=== PATIENT | male | born 1930 | race Caucasian/White ===

== ENCOUNTER 2017-05-19 09:53 | Emergency (ER) | payer MEDICARE, BC ==
[2017-05-19] MEDS ORDERED: Aspirin 81 MG Tab.Chew ONE (09:57)
--- NOTE | 2017-05-19 10:04 | EDM.PDOC ---
ED HPI GENERAL MEDICAL PROBLEM - General Stated Complaint: CHEST PAIN CAME FROM ACLR Time Seen by Provider: 05/19/17 09:55 Source of Information: Reports: Patient, Old Records, RN, RN Notes Reviewed History Limitations: Reports: No Limitations - History of Present Illness INITIAL COMMENTS - FREE TEXT/NARRATIVE: Adi is a 86 yo Male who presents today due to a week long history of burning pain to his mid chest. He reports that his pain has progressively gotten worse since that time. He denies radiation. Reports that the pain comes and goes in waves. He does get short of breath with the pain and nausea with the pain. He does have a history significant for stent placement x2. He stopped taking his Plavix approximately a week after his stent placement. He took 3 nitroglycerin at home with significant relief in his pain. He went to the clinic today to have his pain evaluated and was sent to the ED for further evaluation. Clinic nurse reported that his trop was elevated over 4. Onset: Gradual (For the last week ) Duration: Day(s): Location: Reports: Chest Quality: Reports: Other (burning pain to his chest ) Severity: Moderate Improves with: Reports: Rest Worsens with: Reports: Eating, Movement Associated Symptoms: Reports: Chest Pain, Nausea/Vomiting, Shortness of Breath Epigastric Pain Score (Numeric/FACES): 1 - Related Data Allergies Allergy/AdvReac Type Severity Reaction Status Date / Time No Known Allergies Allergy Verified 09/05/14 10:20 Home Meds: Home Meds Non-Formulary Medication [NF Drug] 1 each PO BID 07/06/15 [History] Non-Formulary Medication [NF Drug] 1 each PO BID 07/06/15 [History] Non-Formulary Medication [NF Drug] 1 each PO DAILY 07/06/15 [History] Non-Formulary Medication [NF Drug] 2 each PO BID 07/06/15 [History] Ciprofloxacin HCl [Cipro] 500 mg PO BID #14 tablet 07/08/15 [Rx] metroNIDAZOLE [Flagyl] 500 mg PO BID #14 tablet 07/08/15 [Rx] Past Medical History HEENT History: Reports: Cataract, Impaired Vision, Other (See Below) Other HEENT History: has hearing aides, glasses worn for reading Cardiovascular History: Reports: CAD, High Cholesterol, Hypertension, [place], Stents Gastrointestinal History: Reports: Other (See Below) Other Gastrointestinal History: diverticulitis Genitourinary History: Reports: Prostate Disorder Musculoskeletal History: Reports: Back Pain, Chronic, Fracture, Neck Pain, Chronic, Other (See Below) Other Musculoskeletal History: hx broken nose - Infectious Disease History Infectious Disease History: Reports: Chicken Pox, Shingles - Past Surgical History HEENT Surgical History: Reports: Cataract Surgery Cardiovascular Surgical History: Reports: Other (See Below) Social & Family History - Family History Family Medical History: Noncontributory - Tobacco Use Smoking Status *Q: Former Smoker Used Tobacco, but Quit: Yes Month/Year Tobacco Last Used: 07/1964 Second Hand Smoke Exposure: No - Alcohol Use Days Per Week of Alcohol Use: 7 Number of Drinks Per Day: 1 Total Drinks Per Week: 7 - Recreational Drug Use Recreational Drug Use: No ED ROS GENERAL - Review of Systems Review Of Systems: ROS reveals no pertinent complaints other than HPI. ED EXAM, GENERAL - Physical Exam Exam: See Below Exam Limited By: No Limitations General Appearance: Alert, WD/WN, No Apparent Distress Eye Exam: Bilateral Eye: PERRL Ears: Normal External Exam, Normal Canal, Hearing Grossly Normal, Normal TMs Ear Exam: Bilateral Ear: Auricle Normal, Canal Normal, TM normal Nose: Normal Inspection, Normal Mucosa, No Blood Throat/Mouth: Normal Inspection, Normal Lips, Normal Teeth, Normal Gums, Normal Oropharynx, Normal Voice, No Airway Compromise Head: Atraumatic, Normocephalic Neck: Normal Inspection, Supple, Non-Tender, Full Range of Motion Respiratory/Chest: No Respiratory Distress, Lungs Clear, Normal Breath Sounds, No Accessory Muscle Use, Other (Lower mid chest pain. ) Cardiovascular: Normal Peripheral Pulses, Regular Rate, Rhythm, No Edema, No Gallop, No JVD, No Murmur, No Rub GI/Abdominal: Normal Bowel Sounds, Soft, Non-Tender, No Organomegaly, No Distention, No Abnormal Bruit, No Mass (Male) Exam: Deferred Rectal (Males) Exam: Deferred Back Exam: Normal Inspection, Full Range of Motion, NT Extremities: Normal Inspection, Normal Range of Motion, Non-Tender, Normal Capillary Refill, No Pedal Edema Neurological: Alert, Oriented, CN II-XII Intact, Normal Cognition, Normal Gait, Normal Reflexes, No Motor/Sensory Deficits Psychiatric: Normal Affect, Normal Mood Skin Exam: Warm, Dry, Intact, Normal Color, No Rash Lymphatic: No Adenopathy EKG INTERPRETATION EKG Date: 05/19/17 Time: 09:55 Rhythm: NSR [place]: LAD-Left [place] Deviation P-Wave: Present QRS: Normal ST-T: Normal QT: Normal Comparison: No Change Course - Vital Signs Last Recorded V/S: Last Vital Signs Temp 97.8 F 05/19/17 09:42 Pulse 74 05/19/17 09:42 Resp 14 05/19/17 09:42 BP 149/95 H 05/19/17 09:42 Pulse Ox 98 05/19/17 09:42 - Orders/Labs/Meds Orders: Active Orders 24 hr Category Date Time Status EKG Documentation Completion [RC] URGENT Care 05/19/17 09:41 Active Aspirin Med 05/20/17 08:00 Active 162 mg PO WITHBREAKFAST Medication Orders Aspirin (Aspirin) 162 mg PO WITHBREAKFAST AGUSTIN Last Admin: 05/19/17 09:58 Dose: 162 mg Labs: Laboratory Tests 05/19/17 05/19/17 Range/Units 10:02 10:02 WBC 8.6 (5.0-10.0) 10^3/uL RBC 4.64 (4.6-6.2) 10^6/uL Hgb 15.2 (14.0-18.0) g/dL Hct 45.8 (40.0-54.0) % MCV 98.7 (80-100) fL MCH 32.8 (27.0-34.0) pg MCHC 33.2 (33.0-35.0) g/dL Plt Count 193 (150-450) 10^3/uL Neut % (Auto) 64.5 (42.2-75.2) % Lymph % (Auto) 23.5 (20.5-50.1) % [place] % (Auto) 10.4 H (2-8) % Eos % (Auto) 1.5 (1.0-3.0) % Baso % (Auto) 0.1 (0.0-1.0) % Sodium 142 (135-145) mmol/L Potassium 3.7 (3.6-5.0) mmol/L Chloride 100 L (101-111) mmol/L Carbon Dioxide 32.0 H (21.0-31.0) mmol/L Anion Gap 13.7 BUN 15 (7-18) mg/dL Creatinine 0.9 (0.6-1.3) mg/dL Est Cr Clr Drug Dosing TNP Estimated GFR (MDRD) > 60 BUN/Creatinine Ratio 16.66 Glucose 113 H (74-105) mg/dL Calcium 9.6 (8.4-10.2) mg/dl Total Bilirubin 1.7 H (0.2-1.0) mg/dL AST 50 H (10-42) IU/L ALT 21 (10-60) IU/L Alkaline Phosphatase 60 (42-121) IU/L Troponin I 3.08 H* (0.00-0.02) ng/ml Total Protein 7.4 (6.7-8.2) g/dl Albumin 4.1 (3.2-5.5) g/dl Globulin 3.3 Albumin/Globulin Ratio 1.24 Meds: Medications Generic Name Dose Route Start Last Admin Trade Name Freq PRN Reason Stop Dose Admin Aspirin 162 mg 05/20/17 08:00 05/19/17 09:58 Aspirin PO 162 mg WITHBREAKFAST AGUSTIN Administration Discontinued Medications Generic Name Dose Route Start Last Admin Trade Name Freq PRN Reason Stop Dose Admin Aspirin Confirm 05/19/17 09:57 05/19/17 10:16 Aspirin Administered 05/19/17 09:58 Not Given Dose 162 mg .ROUTE .STK-MED ONE Departure - Departure Time of Disposition: 10:46 Disposition: DC/Tfer to Acute Hospital 02 Reason for Transfer *Q: Other Condition: Good Clinical Impression: NSTEMI (non-ST elevated myocardial infarction) Forms: Interfacility Transfer EMTALA Care Plan Goals: Case discussed with Dr Irizarry at this time. He has agreed to accept the patient as a direct admit to the ED.
[2017-05-19 10:29] LABS: CHLORIDE,CL 100 mmol/L (101-111); SODIUM,NA 142 mmol/L (135-145)
[2017-05-19 10:39] VITALS: BP 149/95
[2017-05-19] MEDS ORDERED: Heparin Sodium/D5W 25,000 UNITS/500 ML BAG IV SCH (10:45)
[2017-05-19] MEDS ORDERED: Heparin Sodium 5,000 Units/ML Vial IVPUSH ONE (10:45)
[2017-05-20] MEDS ORDERED: Aspirin 81 MG Tab.Chew PO SCH (08:00)
== END 2017-05-19 11:35 ==
LOC: DL.ED 09:53
DX: I21.4 Non-ST elevation (NSTEMI) myocardial infarction (principal); I10 Essential (primary) hypertension; I25.2 Old myocardial infarction; Z79.899 Other long term (current) drug therapy; Z87.891 Personal history of nicotine dependence
CPT/HCPCS: 36415; 80053; 84484; 85025; 93005; 93010; 96365; 96375; 99285; A9270; J1644

== ENCOUNTER 2018-06-21 14:23 | Emergency (ER) | payer MEDICARE, BC ==
[2018-06-21 15:37] VITALS: BP 153/92
[2018-06-21 15:51] LABS: ANION GAP 14.9; CHLORIDE,CL 103 mmol/L (101-111); SODIUM,NA 141 mmol/L (135-145)
--- NOTE | 2018-06-21 15:56 | EDM.PDOC ---
ED HPI GENERAL MEDICAL PROBLEM - General Chief Complaint: ENT Problem Stated Complaint: NOSE KEEPS BLEEDING [phone] Time Seen by Provider: 06/21/18 14:40 Source of Information: Reports: Patient, RN, RN Notes Reviewed History Limitations: Reports: No Limitations - History of Present Illness INITIAL COMMENTS - FREE TEXT/NARRATIVE: Pt to ER with c/o nosebleed. Patient states about noon today he bent over and had a bloody nose. He states he held his nose for a while and it eventually stopped. He states he had an appointment with Dr. Ryan at the clinic, but the clinic called him and told him he should go to the ER. Patient has not had a bloody nose since about 1pm. No active bleeding upon arrival. Denies frequent bloody noses, denies being on blood thinners. He denies headaches. He states he has had an GA and has had stents but does not take anticoagulants. Denies any other complaints. Onset: Today, Sudden Duration: Resolved Prior to Arrival - Related Data Allergies Allergy/AdvReac Type Severity Reaction Status Date / Time No Known Allergies Allergy Verified 09/05/14 10:20 Home Meds: Home Meds Non-Formulary Medication [NF Drug] 1 each PO BID 07/06/15 [History] Non-Formulary Medication [NF Drug] 1 each PO BID 07/06/15 [History] Non-Formulary Medication [NF Drug] 1 each PO DAILY 07/06/15 [History] Non-Formulary Medication [NF Drug] 2 each PO BID 07/06/15 [History] Ascorbic Acid 500 mg PO DAILY 06/02/17 [History] Rodríguez Flavor [Rodríguez Concentrate] 100 ml PO DAILY 06/02/17 [History] Clopidogrel Bisulfate [Clopidogrel] 75 mg PO DAILY 06/02/17 [History] Docusate Sodium 100 mg PO BID 06/02/17 [History] Nitroglycerin 0.4 mg SL ASDIRECTED 06/02/17 [History] atorvaSTATin [Lipitor] 40 mg PO DAILY 06/02/17 [History] Past Medical History HEENT History: Reports: Cataract, Impaired Vision, Other (See Below) Other HEENT History: has hearing aides, glasses worn for reading Cardiovascular History: Reports: CAD, High Cholesterol, Hypertension, [place], Stents Gastrointestinal History: Reports: Other (See Below) Other Gastrointestinal History: diverticulitis Genitourinary History: Reports: Prostate Disorder Musculoskeletal History: Reports: Back Pain, Chronic, Fracture, Neck Pain, Chronic, Other (See Below) Other Musculoskeletal History: hx broken nose - Infectious Disease History Infectious Disease History: Reports: Chicken Pox, Shingles - Past Surgical History HEENT Surgical History: Reports: Cataract Surgery Cardiovascular Surgical History: Reports: Coronary Artery Stent Dermatological Surgical History: Reports: None Social & Family History - Family History Family Medical History: Noncontributory - Tobacco Use Smoking Status *Q: Never Smoker - Caffeine Use Caffeine Use: Reports: Coffee - Alcohol Use Days Per Week of Alcohol Use: 1 Number of Drinks Per Day: 1 Total Drinks Per Week: 1 - Recreational Drug Use Recreational Drug Use: No ED ROS ENT - Review of Systems Review Of Systems: ROS reveals no pertinent complaints other than HPI. ED EXAM, ENT - Physical Exam Exam: See Below Exam Limited By: No Limitations General Appearance: Alert, WD/WN, No Apparent Distress Eye Exam: Bilateral Eye: EOMI, Normal Inspection Ears: Normal External Exam, Hearing Grossly Normal Nose: Normal Inspection, Dried Blood Mouth/Throat: Normal Inspection, Normal Gums, Normal Lips, Normal Oropharynx, Normal Teeth Head: Atraumatic, Normocephalic Neck: Normal Inspection, Supple, Non-Tender, Full Range of Motion Respiratory/Chest: No Respiratory Distress, Normal Breath Sounds, No Accessory Muscle Use, Chest Non-Tender, Decreased Breath Sounds Cardiovascular: Normal Peripheral Pulses, Regular Rate, Rhythm, No Edema, No Gallop, No JVD, No Murmur, No Rub GI/Abdominal: Normal Bowel Sounds, Soft, Non-Tender (Male) Exam: Deferred Rectal (Males) Exam: Deferred Back: Normal Inspection, Full Range of Motion Extremities: Normal Inspection, Normal Range of Motion, Non-Tender, No Pedal Edema, Normal Capillary Refill Neurological: Alert, Oriented, CN II-XII Intact, Normal Cognition, Normal Gait, Normal Reflexes, No Motor/Sensory Deficits Psychiatric: Normal Affect, Normal Mood Skin: Warm, Dry, Intact, Normal Color, No Rash Lymphatic: No Adenopathy Course - Vital Signs Last Recorded V/S: Last Vital Signs Temp 98.9 F 06/21/18 14:30 Pulse 84 06/21/18 14:30 Resp 18 06/21/18 14:30 BP 153/92 H 06/21/18 14:30 Pulse Ox 99 06/21/18 14:30 - Orders/Labs/Meds Labs: Laboratory Tests 06/21/18 06/21/18 06/21/18 Range/Units 15:25 15:25 15:25 WBC 8.3 (5.0-10.0) 10^3/uL RBC 4.87 (4.6-6.2) 10^6/uL Hgb 15.8 (14.0-18.0) g/dL Hct 46.6 (40.0-54.0) % MCV 95.7 D (80-100) fL MCH 32.4 (27.0-34.0) pg MCHC 33.9 (33.0-35.0) g/dL Plt Count 186 (150-450) 10^3/uL Neut % (Auto) 64.6 (42.2-75.2) % Lymph % (Auto) 21.3 (20.5-50.1) % [place] % (Auto) 12.0 H (2-8) % Eos % (Auto) 1.9 (1.0-3.0) % Baso % (Auto) 0.2 (0.0-1.0) % PT 9.3 (9.0-12.0) SEC INR 0.9 (0.9-1.2) Sodium 141 (135-145) mmol/L Potassium 3.9 (3.6-5.0) mmol/L Chloride 103 (101-111) mmol/L Carbon Dioxide 27.0 (21.0-31.0) mmol/L Anion Gap 14.9 BUN 19 H (7-18) mg/dL Creatinine 1.1 (0.6-1.3) mg/dL Est Cr Clr Drug Dosing 44.23 mL/min Estimated GFR (MDRD) > 60 BUN/Creatinine Ratio 17.27 Glucose 101 (74-105) mg/dL Calcium 9.3 (8.4-10.2) mg/dl Total Bilirubin 1.8 H (0.2-1.0) mg/dL AST 18 (10-42) IU/L ALT 12 (10-60) IU/L Alkaline Phosphatase 80 (42-121) IU/L Total Protein 6.6 L (6.7-8.2) g/dl Albumin 3.8 (3.2-5.5) g/dl Globulin 2.8 Albumin/Globulin Ratio 1.36 Departure - Departure Time of Disposition: 15:54 Disposition: Home, Self-Care 01 Condition: Fair Clinical Impression: Epistaxis - Discharge Information *PRESCRIPTION DRUG MONITORING PROGRAM REVIEWED*: No *COPY OF PRESCRIPTION DRUG MONITORING REPORT IN PATIENT KERRY: No Instructions: Nosebleed, [id number] Forms: ED Department Discharge Additional Instructions: May use Afrin nasal spray, over the counter. May use vaseline or saline gel on a clean qtip in the nostrils to keep moistened. Follow up with your primary care facility
== END 2018-06-21 16:00 | disposition home or self-care (01) ==
LOC: DL.ED 14:23
DX: R04.0 Epistaxis (principal); I25.10 Atherosclerotic heart disease of native coronary artery without angina pectoris; E78.00 Pure hypercholesterolemia, unspecified; I10 Essential (primary) hypertension; I25.2 Old myocardial infarction; Z95.5 Presence of coronary angioplasty implant and graft; Z79.01 Long term (current) use of anticoagulants; Z79.899 Other long term (current) drug therapy
CPT/HCPCS: 36415; 80053; 85025; 85610; 99283

== ENCOUNTER 2020-01-29 14:50 | Emergency (ER) | payer MEDICARE, BC ==
[2020-01-29 15:54] LABS: ANION GAP 10.9 mEq/L (7-13); CHLORIDE,CL 104 mmol/L (98-107); SODIUM,NA 140 mmol/L (136-145)
--- NOTE | 2020-01-29 15:57 | CT ---
EXAMINATION: Head wo Cont SEX: Male AGE: 89 years CLINICAL HISTORY: 89-year-old male injured in fall (hit head). No comparison CT head immediately available. Patient alert and oriented. Scan technique: Volume acquisition of data emergency unenhanced CT scan of the head and brain obtained with patient lying supine Siemens multislice CT scanner [place], [place]. All data archived in the PACS system for storage, reformatting axial/sagittal/coronal planes and study (bone/brain windows). INTERPRETATION: 1. Generalized age-appropriate cerebral cortical atrophy symmetric with underlying mirror-image normal ventricular system. 2. Scattered areas of decreased attenuation throughout the periventricular white matter consistent with microvascular infarcts. 3. No supratentorial or posterior fossa mass lesion. Cerebellum and brainstem unremarkable. 4. Uniformly thick bony calvarium without sign of skull fracture, scalp contusion or laceration. No foreign bodies. Symmetric clear pneumatization of the paranasal and mastoid sinuses. Normal TMJs. 5. No skull fracture, underlying brain contusion or extracerebral/intracranial epidural or subdural hematoma. 6. No sign of acute intracerebral, intraventricular or subarachnoid bleed (physiologic calcifications). CONCLUSION: No sign of skull fracture or closed head injury. No intracranial bleed.
--- NOTE | 2020-01-29 15:59 | CR ---
PROCEDURE INFORMATION: Exam: XR Chest, 1 View Exam date and time: 01/29/2020 3:43 PM Age: 89 years old Clinical indication: SOB TECHNIQUE: Imaging protocol: XR of the chest Views: 1 view. COMPARISON: No relevant prior studies available. FINDINGS: Lungs: Clear lungs. Pleural space: No pneumothorax. No sizable pleural effusion. Heart/Mediastinum: Cardiomegaly. Bones/joints: Unremarkable. IMPRESSION: Clear lungs.
--- NOTE | 2020-01-29 16:03 | EDM.PDOC ---
ED HPI GENERAL MEDICAL PROBLEM - General Source of Information: Reports: Patient, RN, RN Notes Reviewed History Limitations: Reports: Other (ELEM) - General Chief Complaint: Syncope Stated Complaint: PT KEEPS FALLING OVER, HIT HIS NOSE AND EYE AREA Time Seen by Provider: 01/29/20 15:15 - History of Present Illness INITIAL COMMENTS - FREE TEXT/NARRATIVE: pt arrives ambulatory to ER with c/o several falls. pt states he has fallen on Wednesday, Wednesday, and Wednesday upon standing up after bending over. states he has hit his head on at least 2 occasions. states he called the clinic today to see his PCP and was told to come to the ER for evaluation. denies pain, reports some SOB which he has been experiencing "for years." states he lives alone, still drives. A & O x 3. denies medicaiton use, states he doesnt take prescription medications. does use NTG SL PRN, used on Wednesday after a syncopal episode. previous use was a few weeks ago. hx of PR with stenting, otherwise denies health history. (Lauryn Chand) - Related Data Allergies Allergy/AdvReac Type Severity Reaction Status Date / Time No Known Allergies Allergy Verified 09/05/14 10:20 Home Meds: Home Meds Non-Formulary Medication [NF Drug] 1 each PO BID 07/06/15 [History] Non-Formulary Medication [NF Drug] 1 each PO BID 07/06/15 [History] Non-Formulary Medication [NF Drug] 1 each PO DAILY 07/06/15 [History] Non-Formulary Medication [NF Drug] 2 each PO BID 07/06/15 [History] Ascorbic Acid 500 mg PO DAILY 06/02/17 [History] Rodríguez Flavor [Rodríguez Concentrate] 100 ml PO DAILY 06/02/17 [History] Clopidogrel Bisulfate [Clopidogrel] 75 mg PO DAILY 06/02/17 [History] Docusate Sodium 100 mg PO BID 06/02/17 [History] Nitroglycerin 0.4 mg SL ASDIRECTED 06/02/17 [History] atorvaSTATin [Lipitor] 40 mg PO DAILY 06/02/17 [History] Past Medical History HEENT History: Reports: Cataract, Impaired Vision, Other (See Below) Other HEENT History: has hearing aides, glasses worn for reading Cardiovascular History: Reports: CAD, High Cholesterol, Hypertension, [place], Stents Gastrointestinal History: Reports: Other (See Below) Other Gastrointestinal History: diverticulitis Genitourinary History: Reports: Prostate Disorder Musculoskeletal History: Reports: Back Pain, Chronic, Fracture, Neck Pain, Chronic, Other (See Below) Other Musculoskeletal History: hx broken nose - Infectious Disease History Infectious Disease History: Reports: Chicken Pox, Shingles - Past Surgical History HEENT Surgical History: Reports: Cataract Surgery Cardiovascular Surgical History: Reports: Coronary Artery Stent Dermatological Surgical History: Reports: None Social & Family History - Family History Family Medical History: No Pertinent Family History - Caffeine Use Caffeine Use: Reports: Coffee ED ROS GENERAL - Review of Systems Review Of Systems: Comprehensive ROS is negative, except as noted in HPI. - Physical Exam Exam: See Below Exam Limited By: Other (ELEM) General Appearance: Alert, WD/WN, No Apparent Distress Eye Exam: Bilateral Eye: EOMI, Normal Inspection, PERRL Ears: Normal External Exam, Hearing Loss Nose: Normal Inspection, Normal Mucosa, No Blood Throat/Mouth: Normal Inspection, Normal Voice, No Airway Compromise Head Exam: Normocephalic, Facial Abrasions (right eyebrow and bridge of nose) Neck: Normal Inspection, Supple, Non-Tender, Full Range of Motion Respiratory/Chest: No Respiratory Distress, Lungs Clear, Normal Breath Sounds, Chest Non-Tender Cardiovascular: Normal Peripheral Pulses, Regular Rate, Rhythm, No Edema GI/Abdominal: Normal Bowel Sounds, Soft, Non-Tender (Male) Exam: Deferred Rectal (Males) Exam: Deferred Neuro Exam (Abbreviated): Alert, Oriented Back Exam: Normal Inspection, Full Range of Motion Extremities: Normal Inspection, Normal Range of Motion Psychiatric: Normal Affect, Normal Mood Skin Exam: Warm, Dry, Intact, Normal Color, No Rash Course - Vital Signs Last Recorded V/S: Last Vital Signs Temp 98.1 F 01/29/20 14:55 Pulse 78 01/29/20 14:55 Resp 16 01/29/20 14:55 BP 143/90 H 01/29/20 14:55 Pulse Ox 100 01/29/20 14:55 - Orders/Labs/Meds Orders: Active Orders 24 hr Category Date Time Status EKG 12 Lead [EKG Documentation Completion] [RC] STAT Care 01/29/20 15:06 Active UA W/MICROSCOPIC [URIN] Stat Lab 01/29/20 16:30 Results Labs: Laboratory Tests 01/29/20 01/29/20 01/29/20 Range/Units 15:27 15:27 16:30 WBC 7.1 (5.0-10.0) 10^3/uL RBC 4.56 L (4.6-6.2) 10^6/uL Hgb 15.4 (14.0-18.0) g/dL Hct 44.6 (40.0-54.0) % MCV 97.8 (80-100) fL MCH 33.8 (27.0-34.0) pg MCHC 34.5 (33.0-35.0) g/dL Plt Count 202 (150-450) 10^3/uL Neut % (Auto) 59.9 (42.2-75.2) % Lymph % (Auto) 25.5 (20.5-50.1) % [place] % (Auto) 12.0 H (2-8) % Eos % (Auto) 2.3 (1.0-3.0) % Baso % (Auto) 0.3 (0.0-1.0) % Sodium 140 (136-145) mmol/L Potassium 3.9 (3.5-5.1) mmol/L Chloride 104 (98-107) mmol/L Carbon Dioxide 29 (21-32) mmol/L Anion Gap 10.9 (7-13) mEq/L BUN 23 H (7-18) mg/dL Creatinine 1.11 (0.70-1.30) mg/dL Est Cr Clr Drug Dosing TNP Estimated GFR (MDRD) > 60 BUN/Creatinine Ratio 20.7 (No establ ref range) Glucose 101 H (74-99) mg/dL Calcium 9.3 (8.5-10.1) mg/dL Total Bilirubin 1.2 H (0.2-1.0) mg/dL AST 15 (15-37) U/L ALT 20 (16-63) U/L Alkaline Phosphatase 80 (46-116) U/L Troponin I 0.019 (0.000-0.056) ng/mL Total Protein 6.9 (6.4-8.2) g/dL Albumin 3.8 (3.4-5.0) g/dL Globulin 3.1 Albumin/Globulin Ratio 1.2 Urine Color Yellow (YELLOW) Urine Appearance Slightly cloudy (CLEAR) Urine pH 7.0 (5.0-9.0) Ur Specific [place] 1.025 (1.005-1.030) Urine Protein 100 H (NEGATIVE) Urine Glucose (UA) Negative (NEGATIVE) Urine Ketones Negative (NEGATIVE) Urine Occult Blood Negative (NEGATIVE) Urine Nitrite Negative (NEGATIVE) Urine Bilirubin Negative (NEGATIVE) Urine Urobilinogen 0.2 (0.2-1.0) mg/dL Ur Leukocyte Esterase Negative (NEGATIVE) Ethyl Alcohol < 3 (0) mg/dL Meds: Medications Discontinued Medications Generic Name Dose Route Start Last Admin Trade Name Freq PRN Reason Stop Dose Admin Sodium Chloride 1,000 mls @ 999 mls/hr 01/29/20 16:15 Normal Saline IV 02/02/20 16:11 ASDIRECTED AGUSTIN - Radiology Interpretation Free Text/Narrative:: PROCEDURE INFORMATION: Exam: XR Chest, 1 View Exam date and time: 01/29/2020 3:43 PM Age: 89 years old Clinical indication: SOB TECHNIQUE: Imaging protocol: XR of the chest Views: 1 view. COMPARISON: No relevant prior studies available. FINDINGS: Lungs: Clear lungs. Pleural space: No pneumothorax. No sizable pleural effusion. Heart/Mediastinum: Cardiomegaly. Bones/joints: Unremarkable. IMPRESSION: Clear lungs. Thank you for allowing us to participate in the care of your patient. Dictated and Authenticated by: Oracio Dean MD 01/29/2020 3:58 PM Central Time ([place] & [employer]) Head CT: Conclusion: no sign of skill fracture or closed head injury. no intracranial bleed. Dictated by Freddy Bailey MD (Lauryn Chand) - Re-Assessments/Exams Free Text/Narrative Re-Assessment/Exam: 01/29/20 16:50 I personally performed or re-performed the physical examination and medical decision making. I have verified all student documentation or findings, including history, physical exam and/or medical decision making. (Mark Dietz) discussed potential admission for observation and continued work-up. pt refuses, prefers to be seen in clinic for outpatient workup. refuses IV fluids. appointment made for patient to follow-up with PCP 01/31. 01/29/20 16:36 (Lauryn Chand) Departure - Departure Time of Disposition: 17:08 Condition: Fair - Departure Disposition: Home, Self-Care 01 Clinical Impression: Syncope Qualifiers: Syncope type: unspecified Qualified Code(s): R55 - Syncope and collapse - Discharge Information Instructions: Syncope, [id number] Forms: ED Department Discharge Additional Instructions: Follow-up with: Dr. Ryan 01/31 @ 3:35 pm [facility] [phone] Use caution with rapid or abrupt position changes. Sepsis Event Note (ED) - Focused Exam Vital Signs: Vital Signs Temp Pulse Resp BP Pulse Ox 01/29/20 14:55 98.1 F 78 16 143/90 H 100 - My Orders Last 24 Hours: My Active Orders 01/29/20 15:06 EKG 12 Lead [EKG Documentation Completion] [RC] STAT 01/29/20 16:30 UA W/MICROSCOPIC [URIN] Stat - Assessment/Plan Last 24 Hours: My Active Orders 01/29/20 15:06 EKG 12 Lead [EKG Documentation Completion] [RC] STAT 01/29/20 16:30 UA W/MICROSCOPIC [URIN] Stat
[2020-01-29] MEDS ORDERED: Sodium Chloride 0.9% 1,000 ML IV SCH (16:15)
[2020-01-29 17:02] VITALS: BP 143/90; PULSE 78
== END 2020-01-29 17:10 | disposition home or self-care (01) ==
LOC: DL.ED 14:50
DX: S00.31XA Abrasion of nose, initial encounter (principal); S00.211A Abrasion of right eyelid and periocular area, initial encounter; R55 Syncope and collapse; I10 Essential (primary) hypertension; I25.2 Old myocardial infarction; E78.00 Pure hypercholesterolemia, unspecified; I25.10 Atherosclerotic heart disease of native coronary artery without angina pectoris; Z95.5 Presence of coronary angioplasty implant and graft; Z79.02 Long term (current) use of antithrombotics/antiplatelets; Z79.899 Other long term (current) drug therapy; W01.10XA Fall on same level from slipping, tripping and stumbling with subsequent striking against unspecified object, initial encounter
CPT/HCPCS: 36415; 70450; 71045; 80053; 80307; 81001; 84484; 85025; 93005; 99284; 99285-25

== ENCOUNTER 2020-02-11 08:18 | Emergency (ER) | payer MEDICARE, BC ==
--- NOTE | 2020-02-11 08:18 | EDM.PDOC ---
ED HPI GENERAL MEDICAL PROBLEM - General Stated Complaint: AMBULANCE Time Seen by Provider: 02/11/20 08:18 Source of Information: Reports: Patient, EMS History Limitations: Reports: No Limitations - History of Present Illness INITIAL COMMENTS - FREE TEXT/NARRATIVE: This 89 yo male patient was brought to the ED by [facility] due to chest pain and numerous episodes of syncope. The patient reports his symptoms started last night. The patient reports he had just gotten home from having 2 drinks in [place], 1 drink at the [employer] and 2-3 drinks at [employer] and was walking up to his house when "things went black" causing him to fall. The patient reports 2 people helped him get up several times, but he kept falling down. Eventually, these people helped him into the house. This morning the patient reports he got up and noticed he was having chest pain when moving or taking deep breaths. The pain goes from the front of his chest into his posterior upper shoulders. The patient was seen in this ED on 01/29/20 due to numerous episodes of syncope. The patient followed up with Dr. Ryan on 02/01/20 and was placed on a monitor tech. The patient reports the device was turned in on Wednesday. The patient reports that he drove his vehicle between the establishments yesterday and did not consider himself intoxicated by the time he arrived home. Onset Date: 02/10/20 Duration: Constant Location: Reports: Chest Quality: Reports: Other Severity: Moderate Improves with: Reports: None Worsens with: Reports: None Context: Reports: Other Associated Symptoms: Reports: Chest Pain, Syncope Chest Pain Score (Numeric/FACES): 3 - Related Data Allergies Allergy/AdvReac Type Severity Reaction Status Date / Time No Known Allergies Allergy Verified 02/11/20 08:23 Home Meds: Home Meds Non-Formulary Medication [NF Drug] 1 each PO BID 07/06/15 [History] Non-Formulary Medication [NF Drug] 1 each PO BID 07/06/15 [History] Non-Formulary Medication [NF Drug] 1 each PO DAILY 07/06/15 [History] Non-Formulary Medication [NF Drug] 2 each PO BID 07/06/15 [History] Ascorbic Acid 500 mg PO DAILY 06/02/17 [History] Rodríguez Flavor [Rodríguez Concentrate] 100 ml PO DAILY 06/02/17 [History] Clopidogrel Bisulfate [Clopidogrel] 75 mg PO DAILY 06/02/17 [History] Docusate Sodium 100 mg PO BID 06/02/17 [History] Nitroglycerin 0.4 mg SL ASDIRECTED 06/02/17 [History] atorvaSTATin [Lipitor] 40 mg PO DAILY 06/02/17 [History] Past Medical History HEENT History: Reports: Cataract, Impaired Vision, Other (See Below) Other HEENT History: has hearing aides, glasses worn for reading Cardiovascular History: Reports: CAD, High Cholesterol, Hypertension, [place], Stents Gastrointestinal History: Reports: Other (See Below) Other Gastrointestinal History: diverticulitis Genitourinary History: Reports: Prostate Disorder Musculoskeletal History: Reports: Back Pain, Chronic, Fracture, Neck Pain, Chronic, Other (See Below) Other Musculoskeletal History: hx broken nose - Infectious Disease History Infectious Disease History: Reports: Chicken Pox, Shingles - Past Surgical History HEENT Surgical History: Reports: Cataract Surgery Cardiovascular Surgical History: Reports: Coronary Artery Stent Dermatological Surgical History: Reports: None Social & Family History - Family History Family Medical History: No Pertinent Family History - Caffeine Use Caffeine Use: Reports: Coffee ED ROS GENERAL - Review of Systems Review Of Systems: Comprehensive ROS is negative, except as noted in HPI. ED EXAM, GENERAL - Physical Exam Exam: See Below Exam Limited By: No Limitations General Appearance: Alert, WD/WN, Moderate Distress Eye Exam: Bilateral Eye: EOMI, Normal Inspection, PERRL Ears: Normal External Exam, Normal Canal, Hearing Grossly Normal, Normal TMs Nose: Normal Inspection, Normal Mucosa, No Blood Throat/Mouth: Normal Inspection, Normal Lips, Normal Teeth, Normal Gums, Normal Oropharynx, Normal Voice, No Airway Compromise Head: Atraumatic, Normocephalic Neck: Normal Inspection, Supple, Non-Tender, Full Range of Motion Respiratory/Chest: No Respiratory Distress, Lungs Clear, Normal Breath Sounds, No Accessory Muscle Use, Other (chest wall tenderness to palpation to anterior right side of chest and anterior left lateral chest. The patient does have several abrasions to his chest with no current bleeding. ) Cardiovascular: Normal Peripheral Pulses, Regular Rate, Rhythm, No Edema, No Gallop, No JVD, No Murmur, No Rub GI/Abdominal: Normal Bowel Sounds, Soft, Non-Tender, No Organomegaly, No Distention, No Abnormal Bruit, No Mass (Male) Exam: Deferred Rectal (Males) Exam: Deferred Back Exam: Normal Inspection, Full Range of Motion, NT Extremities: Normal Inspection, Normal Range of Motion, Non-Tender, Normal Capillary Refill, No Pedal Edema Neurological: Alert, Oriented, CN II-XII Intact, Normal Cognition Psychiatric: Normal Affect, Normal Mood Skin Exam: Other (several abrasions to anterior chest) Lymphatic: No Adenopathy Course - Vital Signs Last Recorded V/S: Last Vital Signs Temp 37.3 C 02/11/20 08:19 Pulse 79 02/11/20 09:29 Resp 17 02/11/20 09:29 BP 169/61 H 02/11/20 09:29 Pulse Ox 94 L 02/11/20 09:29 - Orders/Labs/Meds Orders: Active Orders 24 hr Category Date Time Status EKG Documentation Completion [RC] ROUTINE Care 02/11/20 12:20 Active EKG Documentation Completion [RC] STAT Care 02/11/20 08:15 Active Regular Diet [DIET] Diet 02/11/20 Lunch Active CULTURE BLOOD [BC] Stat Lab 02/11/20 08:30 Received Labs: Laboratory Tests 02/11/20 02/11/20 02/11/20 Range/Units 08:17 08:17 08:17 WBC 7.9 (5.0-10.0) 10^3/uL RBC 4.56 L (4.6-6.2) 10^6/uL Hgb 15.6 (14.0-18.0) g/dL Hct 43.7 (40.0-54.0) % MCV 95.8 (80-100) fL MCH 34.2 H (27.0-34.0) pg MCHC 35.7 H (33.0-35.0) g/dL Plt Count 214 (150-450) 10^3/uL Neut % (Auto) 67.0 (42.2-75.2) % Lymph % (Auto) 19.1 L (20.5-50.1) % Levy % (Auto) 10.7 H (2-8) % Eos % (Auto) 2.8 (1.0-3.0) % Baso % (Auto) 0.4 (0.0-1.0) % D-Dimer, Quantitative (0-400) ng/mL Sodium 143 (136-145) mmol/L Potassium 3.9 (3.5-5.1) mmol/L Chloride 104 (98-107) mmol/L Carbon Dioxide 31 (21-32) mmol/L Anion Gap 11.9 (7-13) mEq/L BUN 14 (7-18) mg/dL Creatinine 1.21 (0.70-1.30) mg/dL Est Cr Clr Drug Dosing 34.66 mL/min Estimated GFR (MDRD) 56 BUN/Creatinine Ratio 11.6 (No establ ref range) Glucose 139 H (74-99) mg/dL Lactic Acid 2.2 H* (0.4-2.0) mmol/L Calcium 9.7 (8.5-10.1) mg/dL Total Bilirubin 1.0 (0.2-1.0) mg/dL AST 16 (15-37) U/L ALT 36 (16-63) U/L Alkaline Phosphatase 70 (46-116) U/L Troponin I 0.043 (0.000-0.056) ng/mL Total Protein 6.8 (6.4-8.2) g/dL Albumin 3.9 (3.4-5.0) g/dL Globulin 2.9 Albumin/Globulin Ratio 1.3 Ethyl Alcohol (0) mg/dL SARS-CoV-2 RNA ([facility]) (NEGATIVE) 02/11/20 02/11/20 02/11/20 Range/Units 08:19 08:19 09:06 WBC (5.0-10.0) 10^3/uL RBC (4.6-6.2) 10^6/uL Hgb (14.0-18.0) g/dL Hct (40.0-54.0) % MCV (80-100) fL MCH (27.0-34.0) pg MCHC (33.0-35.0) g/dL Plt Count (150-450) 10^3/uL Neut % (Auto) (42.2-75.2) % Lymph % (Auto) (20.5-50.1) % Levy % (Auto) (2-8) % Eos % (Auto) (1.0-3.0) % Baso % (Auto) (0.0-1.0) % D-Dimer, Quantitative 881 H (0-400) ng/mL Sodium (136-145) mmol/L Potassium (3.5-5.1) mmol/L Chloride (98-107) mmol/L Carbon Dioxide (21-32) mmol/L Anion Gap (7-13) mEq/L BUN (7-18) mg/dL Creatinine (0.70-1.30) mg/dL Est Cr Clr Drug Dosing mL/min Estimated GFR (MDRD) BUN/Creatinine Ratio (No establ ref range) Glucose (74-99) mg/dL Lactic Acid (0.4-2.0) mmol/L Calcium (8.5-10.1) mg/dL Total Bilirubin (0.2-1.0) mg/dL AST (15-37) U/L ALT (16-63) U/L Alkaline Phosphatase (46-116) U/L Troponin I (0.000-0.056) ng/mL Total Protein (6.4-8.2) g/dL Albumin (3.4-5.0) g/dL Globulin Albumin/Globulin Ratio Ethyl Alcohol 7 (0) mg/dL SARS-CoV-2 RNA ([facility]) Negative (NEGATIVE) 02/10/ Range/Units 12:15 WBC (5.0-10.0) 10^3/uL RBC (4.6-6.2) 10^6/uL Hgb (14.0-18.0) g/dL Hct (40.0-54.0) % MCV (80-100) fL MCH (27.0-34.0) pg MCHC (33.0-35.0) g/dL Plt Count (150-450) 10^3/uL Neut % (Auto) (42.2-75.2) % Lymph % (Auto) (20.5-50.1) % Levy % (Auto) (2-8) % Eos % (Auto) (1.0-3.0) % Baso % (Auto) (0.0-1.0) % D-Dimer, Quantitative (0-400) ng/mL Sodium (136-145) mmol/L Potassium (3.5-5.1) mmol/L Chloride (98-107) mmol/L Carbon Dioxide (21-32) mmol/L Anion Gap (7-13) mEq/L BUN (7-18) mg/dL Creatinine (0.70-1.30) mg/dL Est Cr Clr Drug Dosing mL/min Estimated GFR (MDRD) BUN/Creatinine Ratio (No establ ref range) Glucose (74-99) mg/dL Lactic Acid (0.4-2.0) mmol/L Calcium (8.5-10.1) mg/dL Total Bilirubin (0.2-1.0) mg/dL AST (15-37) U/L ALT (16-63) U/L Alkaline Phosphatase (46-116) U/L Troponin I 0.048 (0.000-0.056) ng/mL Total Protein (6.4-8.2) g/dL Albumin (3.4-5.0) g/dL Globulin Albumin/Globulin Ratio Ethyl Alcohol (0) mg/dL SARS-CoV-2 RNA ([facility]) (NEGATIVE) Departure - Departure Time of Disposition: 13:21 Disposition: DC/Tfer to [facility] Reason for Transfer *Q: Other Condition: Fair Clinical Impression: Arrhythmia Qualifiers: Arrhythmia type: unspecified cardiac arrhythmia Qualified Code(s): I49.9 - Cardiac arrhythmia, unspecified Syncope Qualifiers: Syncope type: unspecified Qualified Code(s): R55 - Syncope and collapse Forms: Interfacility Transfer EMTALA Care Plan Goals: Discussed the patient's history, examination, initial EKG, initial lab, repeat EKG, repeat labs and change in cardiac rhythm with Dr. Lutz. Dr. Lutz accepted the patient for continued evaluation and management as an observation patient at [facility] in [place]. The patient will be transported by [facility]. Sepsis Event Note (ED) - Focused Exam Vital Signs: Vital Signs Temp Pulse Resp BP Pulse Ox 02/11/20 09:29 79 17 169/61 H 94 L 02/11/20 08:45 88 14 140/77 91 L 02/11/20 08:19 37.3 C 95 20 163/99 H 96 - My Orders Last 24 Hours: My Active Orders 02/11/20 08:15 EKG Documentation Completion [RC] STAT 02/11/20 08:30 CULTURE BLOOD [BC] Stat 02/11/20 Lunch Regular Diet [DIET] 02/11/20 12:20 EKG Documentation Completion [RC] ROUTINE - Assessment/Plan Last 24 Hours: My Active Orders 02/11/20 08:15 EKG Documentation Completion [RC] STAT 02/11/20 08:30 CULTURE BLOOD [BC] Stat 02/11/20 Lunch Regular Diet [DIET] 02/11/20 12:20 EKG Documentation Completion [RC] ROUTINE
[2020-02-11 08:53] LABS: ANION GAP 11.9 mEq/L (7-13)
--- NOTE | 2020-02-11 09:04 | CR ---
PROCEDURE INFORMATION: Exam: XR Chest, 1 View Exam date and time: 02/11/2020 8:24 AM Age: 89 years old Clinical indication: Chest pain; Type not specified TECHNIQUE: Imaging protocol: XR of the chest Views: 1 view. COMPARISON: CR Chest 1V Frontal 01/29/2020 3:43 PM FINDINGS: Lungs: The lungs are normally expanded and clear. Pleural space: Normal. Heart/Mediastinum: Mildly enlarged heart. Vasculature: Mild aortosclerosis. Tortuous aorta. Bones/joints: The bones are intact. IMPRESSION: No change or acute disease. Chronic mild cardiomegaly.
[2020-02-11 13:27] VITALS: BP 126/71; PULSE 116
== END 2020-02-11 14:04 ==
LOC: DL.ED 08:18
DX: I49.9 Cardiac arrhythmia, unspecified (principal); R55 Syncope and collapse; I25.10 Atherosclerotic heart disease of native coronary artery without angina pectoris; E78.00 Pure hypercholesterolemia, unspecified; I10 Essential (primary) hypertension; I25.2 Old myocardial infarction; Z95.5 Presence of coronary angioplasty implant and graft; Z79.899 Other long term (current) drug therapy; Z20.828 Contact with and (suspected) exposure to other viral communicable diseases; Z79.02 Long term (current) use of antithrombotics/antiplatelets
CPT/HCPCS: 36415; 71045; 80053; 80307; 83605; 84484; 85025; 85379; 87040; 93005; 93010; 99283; 99285-25; U0002